=== PATIENT | male | born 1970 | race Caucasian/White ===

== ENCOUNTER 2021-10-09 11:00 | Emergency (ER) | payer OTHER ==
[~2021-10-09] VITALS: Ht 170.2 cm; Wt 82.6 kg
[2021-10-09] MEDS ORDERED: COZAAR25 MG PO (11:07)
[2021-10-09] MEDS ORDERED: SYNTHROID137 MCG PO (11:07)
[2021-10-09] MEDS ORDERED: PROPRANOLOL HCL10 MG PO (11:08)
[2021-10-09] MEDS ORDERED: NORFLEX100MG PO (11:54)
[2021-10-09] MEDS ORDERED: KETO10TA2 PO (11:54)
== END 2021-10-09 12:11 | disposition home or self-care (01) ==
LOC: ER 11:00
DX: M54.2 Cervicalgia (principal)

== ENCOUNTER 2022-05-14 07:20 | Emergency (ER) | payer OTHER ==
[~2022-05-14] VITALS: Ht 170.2 cm; Wt 81.6 kg
[~2022-05-14 07:20] MED LIST: COZAAR25 MG PO; KETO10TA2 PO; NORFLEX100MG PO; PROPRANOLOL HCL10 MG PO; SYNTHROID137 MCG PO
[2022-05-14] MEDS ORDERED: INDERAL LA80 MG (07:46)
[2022-05-14] MEDS ORDERED: TAMS0.4C PO (13:10)
== END 2022-05-14 13:18 | disposition home or self-care (01) ==
LOC: ER 07:20
DX: R10.32 Left lower quadrant pain (principal); N20.0 Calculus of kidney; K57.90 Diverticulosis of intestine, part unspecified, without perforation or abscess without bleeding; Z91.013 Allergy to seafood; I10 Essential (primary) hypertension

== ENCOUNTER 2022-09-02 19:39 | Emergency (ER) | payer OTHER ==
[~2022-09-02] VITALS: Ht 170.2 cm; Wt 83.9 kg
[~2022-09-02 19:39] MED LIST changes: +INDERAL LA80 MG; +TAMS0.4C PO
[2022-09-02] MEDS ORDERED: AMOX-CLAV 875-1 EAC1 PO (19:49)
[2022-09-02] MEDS ORDERED: AZELASTIN-FLUTI23 GM NS (19:50)
== END 2022-09-02 22:20 | disposition home or self-care (01) ==
LOC: ER 19:39
DX: G43.909 Migraine, unspecified, not intractable, without status migrainosus (principal); Z91.013 Allergy to seafood

== ENCOUNTER 2022-11-22 14:36 | Outpatient (CLI) | payer OTHER ==
[~2022-11-22 14:36] MED LIST changes: +AMOX-CLAV 875-1 EAC1 PO; +AZELASTIN-FLUTI23 GM NS
== END 2022-11-22 14:49 | disposition home or self-care (01) ==
LOC: RAD 14:36
DX: J44.9 Chronic obstructive pulmonary disease, unspecified (principal)